=== PATIENT | female | born 1990 | race Two or more races ===

== ENCOUNTER 2021-10-01 15:26 | Emergency (ER) | payer SELFPAY ==
[~2021-10-01] VITALS: Ht 185.4 cm; Wt 54.4 kg
--- NOTE | 2021-10-01 16:01 | NUR ---
L SIDED CHEST PAIN, PAIN TAKING DEEP BREATHS ON AND OFF SINCE 10AM. VITALS ARE WITHIN NORMAL LIMITS. BREATHING IS EVEN AND UNLABORED, ON ROOM AIR, NO SOB NOTED.
[2021-10-01] MEDS ORDERED: ACETAMINOPHEN 325 MG TABLET PO ONE (17:00)
--- NOTE | 2021-10-01 17:14 | NUR ---
IV ESTABLISHED 20G R WRIST, LABS COLLECTED AND DRAWN.
[2021-10-01] MEDS ORDERED: ACETAMINOPHEN 325 MG TABLET ONE (17:24)
[2021-10-01 17:37] LABS: BASOPHILS # (AUTO) 0.1 K/uL (0.0-0.2); BASOPHILS % (AUTO) 0.7 % (0.0-2.0); EOSINOPHILS % (AUTO) 1.6 % (0.0-6.0); HEMATOCRIT 40 % (33-45); HEMOGLOBIN 13.1 g/dL (11.5-14.8); LYMPHOCYTES # (AUTO) 3.2 K/uL (0.8-4.8); LYMPHOCYTES % (AUTO) 38.4 % (20.0-44.0); MEAN CORPUSCULAR HGB CONC 33 g/dl (31.0-36.0); MEAN CORPUSCULAR VOLUME 93 fL (82-100); MONOCYTES # (AUTO) 0.5 K/uL (0.1-1.30); MONOCYTES % (AUTO) 6.2 % (2.0-12.0); NEUTROPHILS # (AUTO) 4.4 K/uL (1.8-8.9); NEUTROPHILS % (AUTO) 53.1 % (43.0-81.0); PLATELET COUNT (AUTO) 259 K/uL (150-450); RED BLOOD CELL COUNT(AUTO) 4.24 MIL/uL (4.0-5.2); WHITE BLOOD COUNT (AUTO) 8.2 K/uL (4.3-11.0)
[2021-10-01 17:47] LABS: CALCIUM, SERUM 8.6 mg/dL (8.5-10.1); CARBON DIOXIDE 23 mmol/L (21-32); CHLORIDE 107 mmol/L (98-107); CREATININE 0.6 mg/dL (0.6-1.3); GLUCOSE 76 mg/dL (74-106); POTASSIUM 4.4 mmol/L (3.5-5.1); SODIUM SERUM 139 mmol/L (136-145); UREA NITROGEN, BLOOD 10 mg/dL (7-18)
[2021-10-01] MEDS ORDERED: NAPR-1164 PO (18:52)
[2021-10-01] MEDS ORDERED: LIDO700A30 TP (18:52)
--- NOTE | 2021-10-01 19:20 | NUR ---
IV removed. Catheter intact and site benign. Pressure and 4x4 applied to site. No bleeding noted. Patient discharged to home in stable condition. Written and verbal after care instructions given. Patient verbalizes understanding of instruction.
[2021-10-01 19:21] VITALS: BP 113/53
== END 2021-10-01 19:21 | disposition home or self-care (01) ==
LOC: ER 16:00
DX: S29.011A Strain of muscle and tendon of front wall of thorax, initial encounter (principal); X58.XXXA Exposure to other specified factors, initial encounter; Y93.89 Activity, other specified; Y92.89 Other specified places as the place of occurrence of the external cause; Y99.8 Other external cause status
CPT/HCPCS: 36415; 71045-TC; 80048-TC; 84484-TC; 85025-TC; 85378-TC